=== PATIENT | male | born 1980 | race Caucasian/White ===

== ENCOUNTER → 2016-10-09 | Outpatient (CLI) | payer OTHER | LOC: M OUTALCOH 13:36 | PROVIDERS: ATTEND Psychiatry & Neurology Psychiatry | DX: Z13.9 Encounter for screening, unspecified (principal); F10.20 Alcohol dependence, uncomplicated ==

== ENCOUNTER → 2016-11-15 | Outpatient (CLI) | payer OTHER ==
[2016-11-15 08:21] LABS: MEAN CORPUSCULAR HEMOGLOBIN 32.1 pg (27.0-33.0); MEAN CORPUSCULAR HGB CONC 33.4 g/dl (32.0-36.5); MEAN CORPUSCULAR VOLUME 96.2 fl (80.0-96.0); RED CELL DISTRIBUTION WIDTH 12.5 % (11.5-14.5); WHITE BLOOD COUNT 6.3 K/mm3 (4.0-10.0)
[2016-11-15 08:47] LABS: ALBUMIN 3.8 GM/DL (3.2-5.2); ALBUMIN/GLOBULIN RATIO 1.09 (1.00-1.93); ALKALINE PHOSPHATASE 66 U/L (45-117); ALT/SGPT 151 U/L (12-78); ANION GAP 6 MEQ/L (8-16); AST/SGOT 55 U/L (15-37); BILIRUBIN,TOTAL 0.3 MG/DL (0.2-1.0); BLOOD UREA NITROGEN 21 MG/DL (7-18); CALCIUM LEVEL 9.3 MG/DL (8.5-10.1); CARBON DIOXIDE LEVEL 28 MEQ/L (21-32); CHLORIDE LEVEL 107 MEQ/L (98-107); CREATININE FOR GFR 1.15 MG/DL (0.70-1.30); GLOMERULAR FILTRATION RATE > 60.0 (>60); GLUCOSE, FASTING 94 MG/DL (70-105); POTASSIUM SERUM 4.4 MEQ/L (3.5-5.1); SODIUM LEVEL 141 MEQ/L (136-145); TOTAL PROTEIN 7.3 GM/DL (6.4-8.2)
--- NOTE | 2016-11-15 08:51 | REP ---
Clinical: Cirrhosis. Technique: Real time hanson scale ultrasound examination using curved array transducer. Findings: Liver and visualized pancreas are normal in contour, size, echogenicity without focal hepatic or pancreatic lesions identified. The gallbladder is normal and without gallstones, wall thickening, or pericholecystic fluid. No biliary ductal dilatation is appreciated and the common bile duct measures 4.6 mm diameter. Right kidney is normal in reniform shape without hydronephrosis and measures 11.3 x 5.7 x 5.5 cm. No ascites. Impression: Normal right upper quadrant and liver ultrasound. Signed by Juancarlos Mcmillan MD 11/15/2016 08:43 A
[2016-11-19 00:06] LABS: ALT 149 IU/L (0-55); GGT 79 IU/L (0-65); HAPTOGLOBIN 114 mg/dL (34-200); HEPATITIS C QUANTITATION 239980 IU/mL (.); HEPATITIS C VIRUS GENOTYPE 1b (.); NECROINFLAM SCORE 0.65 (0.00-0.17); NECROINFLAMM GRADE A3-Severe activity (.); TOTAL BILIRUBIN 0.2 mg/dL (0.0-1.2)
== END ==
LOC: M RAD 07:49
PROVIDERS: ATTEND Family Medicine
DX: F10.20 Alcohol dependence, uncomplicated (principal); B18.2 Chronic viral hepatitis C

== ENCOUNTER 2016-12-19 21:38 | Emergency (ER) | payer OTHER ==
[~2016-12-19] VITALS: Ht 188 cm; Wt 90.7 kg
[2016-12-19 21:45] VITALS: BP 139/89
[2016-12-19] MEDS ORDERED: NS 1,000 ML IV ONE (22:00)
[2016-12-19 22:10] LABS: VENOUS BASE EXCESS -2.5 (-2.0-2.0); VENOUS O2 SATURATION 97.8 % (60.0-80.0); VENOUS PARTIAL PRESSURE CO2 29.9 mmHg (38.0-50.0); VENOUS PARTIAL PRESSURE O2 97.1 mmHg (30.0-50.0); VENOUS STANDARD HCO3 22.4 MEQ/L
[2016-12-19 22:15] LABS: BASO # 0.1 K/mm3 (0.0-0.2); BASO % 0.5 % (0.0-1.0); EOS # 0.1 K/mm3 (0.0-0.50); EOS % 0.6 % (0.0-3.0); LARGE UNSTAINED CELL # 0.3 K/mm3 (0.0-0.4); LARGE UNSTAINED CELL % 2.1 % (0.0-4.0); LYMPH # 4.1 K/mm3 (1.5-4.5); LYMPH % 33.9 % (24.0-44.0); MEAN CORPUSCULAR HEMOGLOBIN 33.3 pg (27.0-33.0); MEAN CORPUSCULAR HGB CONC 36.2 g/dl (32.0-36.5); MEAN CORPUSCULAR VOLUME 91.9 fl (80.0-96.0); MONO # 0.8 K/mm3 (0.0-0.8); MONO % 6.8 % (0.0-5.0); NEUTROPHILS # 6.7 K/mm3 (1.8-7.7); PLATELET COUNT, AUTOMATED 327 k/mm3 (150-450); RED CELL DISTRIBUTION WIDTH 12.1 % (11.5-14.5)
[2016-12-19 22:37] LABS: OSMOLALITY SERUM 296 MOSM/KG (275-295)
[2016-12-19 22:58] LABS: ALBUMIN 4.4 GM/DL (3.2-5.2); ALBUMIN/GLOBULIN RATIO 1.16 (1.00-1.93); ALKALINE PHOSPHATASE 86 U/L (45-117); ALT/SGPT 178 U/L (12-78); ANION GAP 15 MEQ/L (8-16); AST/SGOT 75 U/L (15-37); BILIRUBIN,DIRECT < 0.1 MG/DL (0.0-0.2); BILIRUBIN,TOTAL 0.3 MG/DL (0.2-1.0); BLOOD UREA NITROGEN 26 MG/DL (7-18); CALCIUM LEVEL 9.4 MG/DL (8.5-10.1); CARBON DIOXIDE LEVEL 20 MEQ/L (21-32); CHLORIDE LEVEL 102 MEQ/L (98-107); CREATININE FOR GFR 1.48 MG/DL (0.70-1.30); GLOMERULAR FILTRATION RATE 56.6 (>60); GLUCOSE, FASTING 100 MG/DL (70-105); POTASSIUM SERUM 3.8 MEQ/L (3.5-5.1); SODIUM LEVEL 137 MEQ/L (136-145); TOTAL PROTEIN 8.2 GM/DL (6.4-8.2)
--- NOTE | 2016-12-19 23:10 | REPUSA ---
CT of the head Clinical history: Headache. Technique: Multiple axial CT images were obtained through the head without administration of contrast . Findings: The ventricles and sulci are symmetric bilaterally. There is no evidence of acute hemorrhag e or infarct. There is no midline shift, mass effect, or extra-axial fluid collection. The osseous st ructures are unremarkable. The visualized paranasal sinuses and mastoid air cells are clear. Impression: Negative study.
[2016-12-20 00:27] LABS: METHADONE URINE NEGATIVE (NEGATIVE)
--- NOTE | 2016-12-20 05:58 | ECGEPIP ---
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
--- NOTE | 2016-12-20 06:01 | ECGEPIP ---
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 RBBB SIMILAR TO PRIOR ON SAME DATE Electronically Signed On 12-20-2016 6:00:33 EDT by Rick Barney
== END 2016-12-20 04:03 | disposition home or self-care (01) ==
LOC: EDBD 21:38 → M ED 22:38
DX: R56.9 Unspecified convulsions (principal); R94.31 Abnormal electrocardiogram [ECG] [EKG]; T40.4X1A Poisoning by other synthetic narcotics, accidental (unintentional), initial encounter; X58.XXXA Exposure to other specified factors, initial encounter; Y92.89 Other specified places as the place of occurrence of the external cause; Z87.820 Personal history of traumatic brain injury
CPT/HCPCS: 36415; 70450; 80048; 80076; 80306; 81001; 82803; 83605; 83930; 84443; 85025; 87086; 93005; 93041; 99285; G0480

== ENCOUNTER → 2017-04-25 | Outpatient (CLI) | payer MEDICAID | LOC: M OUTALCOH 12:24 | PROVIDERS: ATTEND Psychiatry & Neurology Psychiatry | DX: Z13.9 Encounter for screening, unspecified (principal); F11.20 Opioid dependence, uncomplicated; F10.20 Alcohol dependence, uncomplicated ==

== ENCOUNTER 2017-05-24 14:00 | Outpatient (RCR) | payer MEDICAID | END 2017-05-26 | LOC: M OUTALCOH 14:00 | PROVIDERS: ATTEND Psychiatry & Neurology Psychiatry | DX: F10.20 Alcohol dependence, uncomplicated (principal); F11.20 Opioid dependence, uncomplicated; F17.200 Nicotine dependence, unspecified, uncomplicated ==

== ENCOUNTER → 2017-05-28 | Outpatient (REF) | payer OTHER ==
[2017-05-28 18:45] LABS: ALBUMIN 3.9 GM/DL (3.2-5.2); ALBUMIN/GLOBULIN RATIO 1.18 (1.00-1.93); ALKALINE PHOSPHATASE 75 U/L (45-117); ALT/SGPT 99 U/L (12-78); AST/SGOT 45 U/L (15-37); BILIRUBIN,DIRECT 0.1 MG/DL (0.0-0.2); BILIRUBIN,TOTAL 0.3 MG/DL (0.2-1.0); TOTAL PROTEIN 7.2 GM/DL (6.4-8.2)
[2017-05-30 11:03] LABS: HEPATITIS B SURFACE ANTIBODY NEGATIVE (POSITIVE)
[2017-05-31 10:13] LABS: HEPATITIS C QUANTITATION 158470 IU/mL (.)
== END ==
LOC: M SFHCPLAZ 12:59
PROVIDERS: ATTEND Internal Medicine Infectious Disease
DX: B18.2 Chronic viral hepatitis C (principal)

== ENCOUNTER → 2017-07-20 | Outpatient (REF) | payer MEDICAID | LOC: M LAB REF 17:16 | PROVIDERS: ATTEND Family Medicine Addiction Medicine | DX: F11.21 Opioid dependence, in remission (principal) ==

== ENCOUNTER → 2017-07-26 | Outpatient (RCR) | payer MEDICAID | LOC: M OUTALCOH 07-02 09:00 | PROVIDERS: ATTEND Psychiatry & Neurology Psychiatry | DX: F10.20 Alcohol dependence, uncomplicated (principal); F11.20 Opioid dependence, uncomplicated; F17.200 Nicotine dependence, unspecified, uncomplicated ==

== ENCOUNTER → 2017-08-10 | Outpatient (REF) | payer MEDICAID | LOC: M LAB REF 16:24 | PROVIDERS: ATTEND Family Medicine Addiction Medicine | DX: F11.21 Opioid dependence, in remission (principal) ==

== ENCOUNTER → 2017-08-30 | Outpatient (REF) | payer MEDICAID ==
[2017-09-06 14:19] LABS: AMPHETAMINE SCREEN, URINE Negative ng/mL (Cutoff=1000); BARBITURATES SCREEN, URINE Negative ng/mL (Cutoff=200); BENZODIAZEPINES, URINE SCREEN Negative ng/mL (Cutoff=200); CANNABINOID SCREEN, URINE Negative ng/mL (Cutoff=20); COCAINE SCREEN, URINE Negative ng/mL (Cutoff=300); FENTANYL URINE SCREEN Negative pg/mL (Cutoff=2000); METHADONE, URINE SCREEN Negative ng/mL (Cutoff=300); NALOXONE RESULT Negative (.); OPIATE SCREEN, URINE Negative ng/mL (Cutoff=300); OXYCODONE, SCREEN, URINE Negative ng/mL (Cutoff=100); PCP SCREEN, URINE Negative ng/mL (Cutoff=25); SPECIFIC GRAVITY, URINE 1.019 (.); URINE BUPRENORPHINE Positive (.); URINE BUPRENORPHINE Positive (Cutoff=10); URINE BUPRENORPHINE See Final Results ng/mL (Cutoff=10); URINE BUPRENORPHINE CONFIRM 30 ng/mL (Cutoff=10); URINE NORBUPRENORPHINE Positive (.); URINE NORBUPRENORPHINE CONFIRM 322 ng/mL (Cutoff=10); pH, URINE 6.3 (4.5-8.9)
== END ==
LOC: M LAB REF 11:37
DX: F11.21 Opioid dependence, in remission (principal)
CPT/HCPCS: 80362

== ENCOUNTER → 2017-09-27 | Outpatient (REF) | payer MEDICAID | LOC: M LAB REF 12:27 | DX: F11.21 Opioid dependence, in remission (principal) ==

== ENCOUNTER 2017-10-26 03:07 | Emergency (ER) | payer OTHER, MEDICAID ==
[2017-10-26] MEDS: diphenhydrAMINE INJ 50MG/ML VIAL (J1200) IM (04:45)
[2017-10-26] MEDS: cloNIDine 0.1 MG TAB PO (04:45)
== END 2017-10-26 05:27 | disposition home or self-care (01) ==
LOC: M ED 03:07
DX: F11.23 Opioid dependence with withdrawal (principal); Z79.899 Other long term (current) drug therapy
CPT/HCPCS: J1200

== ENCOUNTER → 2017-10-30 | Outpatient (REF) | payer OTHER | LOC: M LAB REF 11:46 | DX: F11.21 Opioid dependence, in remission (principal) ==

== ENCOUNTER → 2017-10-31 | Outpatient (REF) | payer OTHER | LOC: M LAB REF 20:16 | DX: F11.21 Opioid dependence, in remission (principal) ==

== ENCOUNTER → 2017-11-08 | Outpatient (CLI) | payer MEDICAID | LOC: M OUTALCOH 07:48 | DX: Z13.9 Encounter for screening, unspecified (principal); F10.20 Alcohol dependence, uncomplicated; F11.20 Opioid dependence, uncomplicated ==

== ENCOUNTER → 2017-11-23 | Outpatient (REF) | payer MEDICAID | LOC: M LAB REF 18:50 | DX: F11.21 Opioid dependence, in remission (principal) ==

== ENCOUNTER 2017-11-30 15:47 | Outpatient (RCR) | payer MEDICAID | END 2017-12-24 | LOC: M OUTALCOH 15:47 | DX: F10.20 Alcohol dependence, uncomplicated (principal); F11.20 Opioid dependence, uncomplicated; F17.200 Nicotine dependence, unspecified, uncomplicated ==

== ENCOUNTER → 2017-12-11 | Outpatient (REF) | payer MEDICAID ==
[2017-12-17 14:12] LABS: AMPHETAMINE SCREEN, URINE Negative ng/mL (Cutoff=1000); BARBITURATES SCREEN, URINE Negative ng/mL (Cutoff=200); BENZODIAZEPINES, URINE SCREEN Negative ng/mL (Cutoff=200); CANNABINOID SCREEN, URINE Negative ng/mL (Cutoff=20); COCAINE SCREEN, URINE Negative ng/mL (Cutoff=300); CREATININE, URINE 200.6 mg/dL (20.0-300.0); FENTANYL URINE SCREEN Negative pg/mL (Cutoff=2000); METHADONE, URINE SCREEN Negative ng/mL (Cutoff=300); NALOXONE RESULT Positive (.); OPIATE SCREEN, URINE Negative ng/mL (Cutoff=300); OXYCODONE, SCREEN, URINE Negative ng/mL (Cutoff=100); PCP SCREEN, URINE Negative ng/mL (Cutoff=25); SPECIFIC GRAVITY, URINE 1.021 (.); URINE BUPRENORPHINE Positive (.); URINE BUPRENORPHINE Positive (Cutoff=10); URINE BUPRENORPHINE See Final Results ng/mL (Cutoff=10); URINE BUPRENORPHINE CONFIRM 208 ng/mL (Cutoff=10); URINE NORBUPRENORPHINE Positive (.); URINE NORBUPRENORPHINE CONFIRM 1066 ng/mL (Cutoff=10); pH, URINE 5.6 (4.5-8.9)
== END ==
LOC: M LAB REF 11:25
DX: F11.21 Opioid dependence, in remission (principal)
CPT/HCPCS: 80362

== ENCOUNTER 2017-12-28 14:36 | Outpatient (RCR) | payer MEDICAID | END 2018-01-24 | LOC: M OUTALCOH 14:36 | DX: F10.20 Alcohol dependence, uncomplicated (principal); F11.20 Opioid dependence, uncomplicated; F17.200 Nicotine dependence, unspecified, uncomplicated ==

== ENCOUNTER → 2018-01-09 | Outpatient (REF) | payer MEDICAID ==
[2018-01-16 10:20] LABS: AMPHETAMINE SCREEN, URINE Negative ng/mL (Cutoff=1000); BARBITURATES SCREEN, URINE Negative ng/mL (Cutoff=200); BENZODIAZEPINES, URINE SCREEN Negative ng/mL (Cutoff=200); CANNABINOID SCREEN, URINE Negative ng/mL (Cutoff=20); COCAINE SCREEN, URINE Negative ng/mL (Cutoff=300); CREATININE, URINE 41.9 mg/dL (20.0-300.0); FENTANYL URINE SCREEN Negative pg/mL (Cutoff=2000); METHADONE, URINE SCREEN Negative ng/mL (Cutoff=300); NALOXONE RESULT Negative (.); OPIATE SCREEN, URINE Negative ng/mL (Cutoff=300); OXYCODONE, SCREEN, URINE Negative ng/mL (Cutoff=100); PCP SCREEN, URINE Negative ng/mL (Cutoff=25); SPECIFIC GRAVITY, URINE 1.034 (.); URINE BUPRENORPHINE Negative ng/mL (Cutoff=10); pH, URINE 5.4 (4.5-8.9)
== END ==
LOC: M LAB REF 09:45
DX: F11.21 Opioid dependence, in remission (principal)
CPT/HCPCS: 80362

== ENCOUNTER 2018-01-25 11:58 | Outpatient (RCR) | payer MEDICAID | END 2018-02-23 | LOC: M OUTALCOH 01-28 08:45 | DX: F10.20 Alcohol dependence, uncomplicated (principal); F11.20 Opioid dependence, uncomplicated; F17.200 Nicotine dependence, unspecified, uncomplicated ==

== ENCOUNTER 2018-03-06 18:49 | Emergency (ER) | payer OTHER, MEDICAID ==
[2018-03-06] MEDS: PHENobarbital INJ 65 MG/ML VIAL (J2560) IV (19:56)
[2018-03-06 19:57] LABS: HEMATOCRIT 44.3 % (42.0-52.0); HEMOGLOBIN 15.5 g/dl (13.5-17.5); MEAN CORPUSCULAR HEMOGLOBIN 31.6 pg (27.0-33.0); MEAN CORPUSCULAR VOLUME 90.4 fl (80.0-96.0); PLATELET COUNT, AUTOMATED 317 10^3/uL (150-450); RED CELL DISTRIBUTION WIDTH 12.2 % (11.5-14.5); WHITE BLOOD COUNT 9.6 10^3/uL (4.0-10.0)
[2018-03-06] MEDS: MULTIVITAMIN -ADULT INJECTION 10 ML, THIAMINE INJection 100 MG, FOLIC ACID 1 MG in NS 1... IV (20:13)
[2018-03-06 20:18] LABS: LIPASE 111 U/L (73-393)
[2018-03-06 20:33] LABS: ALBUMIN 3.9 GM/DL (3.2-5.2); ALKALINE PHOSPHATASE 85 U/L (45-117); ALT/SGPT 17 U/L (12-78); ANION GAP 8 MEQ/L (8-16); AST/SGOT 9 U/L (7-37); BILIRUBIN,DIRECT 0.2 MG/DL (0.0-0.2); BILIRUBIN,TOTAL 0.6 MG/DL (0.2-1.0); BLOOD UREA NITROGEN 15 MG/DL (7-18); CALCIUM LEVEL 9.5 MG/DL (8.5-10.1); CARBON DIOXIDE LEVEL 26 MEQ/L (21-32); CHLORIDE LEVEL 103 MEQ/L (98-107); CPK CREATINE PHOSPHOKINASE 65 U/L (39-308); CREATININE FOR GFR 1.02 MG/DL (0.70-1.30); ETHYL ALCOHOL (ETHANOL) 0.005 % (0.000-0.010); GLOMERULAR FILTRATION RATE > 60.0 (>60); GLUCOSE, FASTING 105 MG/DL (70-100); POTASSIUM SERUM 4.4 MEQ/L (3.5-5.1); SALICYLATE LEVEL 3.2 MG/DL (5.0-30.0); SODIUM LEVEL 137 MEQ/L (136-145); THYROID STIMULATING HORMONE 0.985 uIU/ML (0.358-3.740); TOTAL PROTEIN 7.8 GM/DL (6.4-8.2)
[2018-03-06 20:40] LABS: ACETAMINOPHEN LEVEL < 2.0 UG/ML (10.0-30.0)
[2018-03-06 22:39] LABS: AMPHETAMINES LEVEL URINE NEGATIVE (NEGATIVE); BARBITURATES URINE NEGATIVE (NEGATIVE); BENZODIAZEPINES URINE NEGATIVE (NEGATIVE); CANNABINOIDS URINE NEGATIVE (NEGATIVE); COCAINE METABOLITE URINE POSITIVE (NEGATIVE); METHADONE URINE NEGATIVE (NEGATIVE); OPIATES URINE POSITIVE (NEGATIVE); PHENCYCLIDINE URINE NEGATIVE (NEGATIVE)
== END 2018-03-06 22:54 | disposition home or self-care (01) ==
LOC: M ED 18:49
DX: F10.20 Alcohol dependence, uncomplicated (principal); F14.10 Cocaine abuse, uncomplicated; F17.210 Nicotine dependence, cigarettes, uncomplicated; Z79.891 Long term (current) use of opiate analgesic
CPT/HCPCS: J2560

== ENCOUNTER → 2018-04-17 | Outpatient (CLI) | payer MEDICAID, OTHER ==
[2018-04-17 10:45] LABS: BASO % 0.5 % (0.0-1.0); EOS # 0.2 10^3/uL (0.0-0.50); EOS % 2.8 % (0.0-3.0); HEMATOCRIT 42.8 % (42.0-52.0); HEMOGLOBIN 14.5 g/dl (13.5-17.5); IMMATURE GRANULOCYTE % 0.2 % (0-3.0); LYMPH # 2.7 10^3/uL (1.5-4.5); LYMPH % 47.8 % (24.0-44.0); MEAN CORPUSCULAR HEMOGLOBIN 30.5 pg (27.0-33.0); MEAN CORPUSCULAR HGB CONC 33.9 g/dl (32.0-36.5); MEAN CORPUSCULAR VOLUME 90.1 fl (80.0-96.0); MONO # 0.5 10^3/uL (0.0-0.8); MONO % 8.9 % (0.0-5.0); NEUTROPHILS # 2.2 10^3/uL (1.8-7.7); NEUTROPHILS % 39.8 % (36.0-66.0); PLATELET COUNT, AUTOMATED 296 10^3/uL (150-450); RED BLOOD COUNT 4.75 10^6/uL (4.30-6.10); RED CELL DISTRIBUTION WIDTH 11.9 % (11.5-14.5); WHITE BLOOD COUNT 5.6 10^3/uL (4.0-10.0)
[2018-04-17 11:07] LABS: ALBUMIN 3.7 GM/DL (3.2-5.2); ALKALINE PHOSPHATASE 73 U/L (45-117); ALT/SGPT 36 U/L (12-78); ANION GAP 7 MEQ/L (8-16); AST/SGOT 19 U/L (7-37); BILIRUBIN,TOTAL 0.3 MG/DL (0.2-1.0); BLOOD UREA NITROGEN 25 MG/DL (7-18); CALCIUM LEVEL 9.2 MG/DL (8.5-10.1); CARBON DIOXIDE LEVEL 29 MEQ/L (21-32); CHLORIDE LEVEL 106 MEQ/L (98-107); CREATININE FOR GFR 0.97 MG/DL (0.70-1.30); GLOMERULAR FILTRATION RATE > 60.0 (>60); GLUCOSE, FASTING 94 MG/DL (70-100); POTASSIUM SERUM 4.5 MEQ/L (3.5-5.1); SODIUM LEVEL 142 MEQ/L (136-145); TOTAL PROTEIN 7.4 GM/DL (6.4-8.2)
[2018-04-17 11:21] LABS: HEPATITIS B SURFACE ANTIBODY NEGATIVE (POSITIVE)
[2018-04-17 11:30] LABS: HEPATITIS B SURFACE ANTIGEN NEGATIVE (NEGATIVE)
[2018-04-22 00:06] LABS: ALPHA 2-MACROGLOBULIN 126 mg/dL (110-276); ALT 30 IU/L (0-55); APOLIPOPROTEIN A-1 165 mg/dL (101-178); FIBROSIS SCORE 0.04 (0.00-0.21); GGT 27 IU/L (0-65); HAPTOGLOBIN 106 mg/dL (34-200); HEPATITIS A IgG TOTAL Positive (Negative); HEPATITIS C QUANTITATION HCV Not Detected IU/mL (.); NECROINFLAMM GRADE A0-No activity (.); TOTAL BILIRUBIN 0.2 mg/dL (0.0-1.2)
== END ==
LOC: M LAB 09:34
DX: B18.2 Chronic viral hepatitis C (principal); B16.9 Acute hepatitis B without delta-agent and without hepatic coma; B15.9 Hepatitis A without hepatic coma; R53.82 Chronic fatigue, unspecified
CPT/HCPCS: 80053

== ENCOUNTER → 2020-04-19 | Outpatient (REF) | payer OTHER, MEDICAID ==
[~2020-04-19] MED LIST: CLONI1TA PO; HYDR50TA70 PO; SUBO12MI SL; ZOLO100T PO
[2020-04-19 17:55] LABS: BASO # 0.1 10^3/uL (0.0-0.2); BASO % 1.3 % (0.0-1.0); EOS # 0.1 10^3/uL (0.0-0.5); HEMATOCRIT 44.6 % (42.0-52.0); HEMOGLOBIN 15.4 g/dl (13.5-17.5); LYMPH # 3.2 10^3/uL (1.5-5.0); LYMPH % 58.4 % (24.0-44.0); MEAN CORPUSCULAR HGB CONC 34.5 g/dl (32.0-36.5); MEAN CORPUSCULAR VOLUME 104.2 fl (80.0-96.0); MONO # 0.7 10^3/uL (0.0-0.8); MONO % 12.6 % (0.0-5.0); NEUTROPHILS # 1.4 10^3/uL (1.5-8.5); NEUTROPHILS % 25.5 % (36.0-66.0); PLATELET COUNT, AUTOMATED 240 10^3/uL (150-450); RED BLOOD COUNT 4.28 10^6/uL (4.30-6.10); WHITE BLOOD COUNT 5.5 10^3/uL (4.0-10.0)
[2020-04-19 17:56] LABS: ALBUMIN 3.7 GM/DL (3.2-5.2); ALT/SGPT 112 U/L (12-78); BILIRUBIN,TOTAL 0.2 MG/DL (0.2-1.0); BLOOD UREA NITROGEN 10 MG/DL (7-18); CALCIUM LEVEL 9.7 MG/DL (8.5-10.1); CARBON DIOXIDE LEVEL 29 MEQ/L (21-32); CHLORIDE LEVEL 106 MEQ/L (98-107); CREATININE FOR GFR 1.09 MG/DL (0.70-1.30); GLOMERULAR FILTRATION RATE > 60.0 (>60); GLUCOSE, FASTING 113 MG/DL (70-100); POTASSIUM SERUM 4.2 MEQ/L (3.5-5.1); SODIUM LEVEL 142 MEQ/L (136-145); TOTAL PROTEIN 7.8 GM/DL (6.4-8.2)
[2020-04-20 14:25] LABS: HEPATITIS C VIRUS ABY INDEX > 11.0 INDEX (<0.8)
== END ==
LOC: M LAB REF 17:14
PROVIDERS: ATTEND Family Medicine Addiction Medicine
DX: B18.2 Chronic viral hepatitis C (principal)

== ENCOUNTER → 2020-09-28 | Outpatient (REF) | payer OTHER ==
[2020-09-28 17:00] LABS: BASO # 0.1 10^3/uL (0.0-0.2); BASO % 1.1 % (0.0-1.0); EOS # 0.1 10^3/uL (0.0-0.5); EOS % 2.6 % (0.0-3.0); HEMATOCRIT 44.8 % (42.0-52.0); HEMOGLOBIN 15.3 g/dl (13.5-17.5); LYMPH # 1.8 10^3/uL (1.5-5.0); LYMPH % 33.1 % (24.0-44.0); MEAN CORPUSCULAR HEMOGLOBIN 34.8 pg (27.0-33.0); MEAN CORPUSCULAR HGB CONC 34.2 g/dl (32.0-36.5); MEAN CORPUSCULAR VOLUME 101.8 fl (80.0-96.0); MONO # 0.7 10^3/uL (0.0-0.8); MONO % 12.4 % (0.0-5.0); NEUTROPHILS # 2.8 10^3/uL (1.5-8.5); NEUTROPHILS % 50.4 % (36.0-66.0); PLATELET COUNT, AUTOMATED 238 10^3/uL (150-450); WHITE BLOOD COUNT 5.5 10^3/uL (4.0-10.0)
[2020-09-28 17:34] LABS: ALT/SGPT 113 U/L (12-78); BILIRUBIN,TOTAL 0.6 MG/DL (0.2-1.0); BLOOD UREA NITROGEN 10 MG/DL (7-18); CALCIUM LEVEL 9.8 MG/DL (8.5-10.1); CARBON DIOXIDE LEVEL 27 MEQ/L (21-32); CHLORIDE LEVEL 103 MEQ/L (98-107); CHOLESTEROL LEVEL 249 MG/DL (<200); CREATININE FOR GFR 1.11 MG/DL (0.70-1.30); GLOMERULAR FILTRATION RATE > 60.0 (>60); GLUCOSE, FASTING 103 MG/DL (70-100); HDL CHOLESTEROL 131 MG/DL (>40); LDL CHOLESTEROL 101 MG/DL (<100); NON-HDL-C 118 MG/DL; POTASSIUM SERUM 4.7 MEQ/L (3.5-5.1); SODIUM LEVEL 139 MEQ/L (136-145); TOTAL PROTEIN 7.9 GM/DL (6.4-8.2); TRIGLYCERIDES LEVEL 86 MG/DL (<150)
== END ==
LOC: M LAB REF 16:37
PROVIDERS: ATTEND Family Medicine Addiction Medicine
DX: B18.2 Chronic viral hepatitis C (principal); Z68.30 Body mass index [BMI] 30.0-30.9, adult

== ENCOUNTER → 2021-11-21 | Outpatient (REF) | payer OTHER | LOC: M SMT 13:01 | PROVIDERS: ATTEND Urology | DX: N48.9 Disorder of penis, unspecified (principal) ==

== ENCOUNTER 2022-06-12 22:16 | Emergency (ER) | payer OTHER ==
[~2022-06-12] VITALS: Ht 188 cm; Wt 109.1 kg
[2022-06-12 23:13] LABS: HEMATOCRIT 42.3 % (42.0-52.0); HEMOGLOBIN 14.8 g/dl (13.5-17.5); MEAN CORPUSCULAR HEMOGLOBIN 36.3 pg (27.0-33.0); MEAN CORPUSCULAR VOLUME 103.7 fl (80.0-96.0); PLATELET COUNT, AUTOMATED 205 10^3/uL (150-450); RED BLOOD COUNT 4.08 10^6/uL (4.30-6.10); WHITE BLOOD COUNT 6.6 10^3/uL (4.0-10.0)
[2022-06-12 23:42] LABS: RSV AMPLIFICATION NEGATIVE (NEGATIVE)
[2022-06-13 00:06] LABS: HCG, SERUM QUALITATIVE NEGATIVE
[2022-06-13 00:11] LABS: AMPHETAMINES LEVEL URINE NEGATIVE (NEGATIVE); BARBITURATES URINE NEGATIVE (NEGATIVE); BENZODIAZEPINES URINE NEGATIVE (NEGATIVE); CANNABINOIDS URINE NEGATIVE (NEGATIVE); COCAINE METABOLITE URINE NEGATIVE (NEGATIVE); METHADONE URINE NEGATIVE (NEGATIVE); OPIATES URINE NEGATIVE (NEGATIVE); PHENCYCLIDINE URINE NEGATIVE (NEGATIVE)
[2022-06-13 00:44] LABS: ACETAMINOPHEN LEVEL < 2.0 UG/ML (10.0-30.0); ALBUMIN 3.6 GM/DL (3.2-5.2); ALT/SGPT 87 U/L (12-78); BILIRUBIN,DIRECT 0.2 MG/DL (0.0-0.2); BILIRUBIN,TOTAL 0.3 MG/DL (0.2-1.0); BLOOD UREA NITROGEN 7 MG/DL (7-18); CALCIUM LEVEL 9.1 MG/DL (8.5-10.1); CARBON DIOXIDE LEVEL 23 MEQ/L (21-32); CHLORIDE LEVEL 105 MEQ/L (98-107); CREATININE FOR GFR 0.97 MG/DL (0.70-1.30); ETHYL ALCOHOL (ETHANOL) 0.387 % (0.000-0.010); GLOMERULAR FILTRATION RATE > 60.0 (>60); GLUCOSE, FASTING 107 MG/DL (70-100); POTASSIUM SERUM 3.2 MEQ/L (3.5-5.1); SALICYLATE LEVEL 2.8 MG/DL (5.0-30.0); SODIUM LEVEL 139 MEQ/L (136-145)
[2022-06-13] MEDS ORDERED: POTASSIUM CHLORIDE 10MEQ SR TABLET PO ONE (07:25)
[2022-06-13] MEDS ORDERED: MIRT-11 PO (15:03)
[2022-06-13] MEDS ORDERED: HOME MED LIST COMPLETE! XX SCH (15:05)
[2022-06-13 18:30] VITALS: BP 130/74
== END 2022-06-13 18:36 | disposition home or self-care (01) ==
LOC: M ED 22:16
DX: F10.129 Alcohol abuse with intoxication, unspecified (principal); B19.20 Unspecified viral hepatitis C without hepatic coma; F11.10 Opioid abuse, uncomplicated; Z79.899 Other long term (current) drug therapy

== ENCOUNTER → 2022-07-24 | Outpatient (CLI) | payer OTHER ==
[~2022-07-24] MED LIST changes: +MIRT-11 PO
== END ==
LOC: M OUTALCOH 09:46
PROVIDERS: ATTEND Psychiatry & Neurology Psychiatry
DX: Z13.30 Encounter for screening examination for mental health and behavioral disorders, unspecified (principal)

== ENCOUNTER 2022-08-18 08:40 | Outpatient (RCR) | payer OTHER | END 2022-08-26 | LOC: M OUTALCOH 08:40 | PROVIDERS: ATTEND Psychiatry & Neurology Psychiatry | DX: F10.20 Alcohol dependence, uncomplicated (principal); Z72.0 Tobacco use ==

== ENCOUNTER 2025-04-03 22:36 | Inpatient (IN) | payer OTHER ==
[~2025-04-03] VITALS: Ht 182.9 cm; Wt 113.6 kg
[2025-04-03 23:16] LABS: PLATELET COUNT, AUTOMATED 174 10^3/uL (150-450)
[2025-04-03 23:50] LABS: AMPHETAMINES LEVEL URINE NEGATIVE (NEGATIVE); BARBITURATES URINE NEGATIVE (NEGATIVE); BENZODIAZEPINES URINE NEGATIVE (NEGATIVE); CANNABINOIDS URINE NEGATIVE (NEGATIVE); COCAINE METABOLITE URINE NEGATIVE (NEGATIVE); METHADONE URINE NEGATIVE (NEGATIVE); OPIATES URINE NEGATIVE (NEGATIVE); PHENCYCLIDINE URINE NEGATIVE (NEGATIVE)
[2025-04-03 23:52] LABS: SALICYLATE LEVEL < 3.0 MG/DL (<30)
[2025-04-03 23:54] LABS: ALT/SGPT 78 U/L (7.0-40); AST/SGOT 108 U/L (<34); CALCIUM LEVEL 9.2 MG/DL (8.5-10.1); CARBON DIOXIDE LEVEL 24 MMOL/L (20-31); CHLORIDE LEVEL 104 MMOL/L (98-107); CREATININE FOR GFR 0.91 MG/DL (0.70-1.30); GLOMERULAR FILTRATION RATE > 90.0 (>60); POTASSIUM SERUM 3.7 MMOL/L (3.5-5.1); SODIUM LEVEL 147 MMOL/L (136-145)
[2025-04-04 00:09] LABS: ETHYL ALCOHOL (ETHANOL) 0.350 % (0.000-0.010)
[2025-04-04] MEDS: ONDANSETRON 4MG ORAL DISINTEGRATING TAB PO ONE ×2 (08:52→10:18)
[2025-04-04] MEDS: FOLIC ACID 1 MG TAB PO SCH (10:08)
[2025-04-04] MEDS: THIAMINE 100 MG TAB PO SCH ×2 (10:09→21:55)
[2025-04-04] MEDS: MULTIVITAMINS/MINERALS THERAP 1 TAB PO SCH (10:09)
[2025-04-04] MEDS ORDERED: HOME MED LIST COMPLETE! XX SCH (11:15)
[2025-04-04] MEDS ORDERED: MOM 30 ML SUSPENSION UDC PO PRN (12:30)
[2025-04-04] MEDS ORDERED: ACETAMINOPHEN 325 MG TAB PO PRN (12:30)
[2025-04-04] MEDS ORDERED: IBUPROFEN 400 MG TAB PO PRN (12:30)
[2025-04-04] MEDS: NICOTINE 14 MG/24 HR TRANSDERMAL TD SCH (13:11)
[2025-04-04] MEDS: chlordiazePOXIDE 25 MG CAP PO SCH (15:04)
[2025-04-04 16:21] VITALS: BP 132/76
[2025-04-04 16:23] VITALS: BP 132/76; TEMP 98.6; O2SAT 95
[2025-04-04] MEDS: LORazepam 1 MG TAB PO PRN (21:55)
[2025-04-04] MEDS: traZODone 50 MG TAB PO PRN (21:55)
[2025-04-04] MEDS: OLANZapine 5 MG TAB PO PRN (21:55)
[2025-04-04 21:59] VITALS: BP 160/94
[2025-04-05 06:26] VITALS: BP 125/74; TEMP 97.8; O2SAT 97
[2025-04-05] MEDS: MULTIVITAMINS/MINERALS THERAP 1 TAB PO SCH (08:30)
[2025-04-05] MEDS: FOLIC ACID 1 MG TAB PO SCH (08:30)
[2025-04-05 14:30] VITALS: BP 125/79
[2025-04-05 15:19] VITALS: BP 125/79; TEMP 98.2; O2SAT 95
[2025-04-05] MEDS: HALOPERIDOL 5 MG TAB PO PRN (18:09)
[2025-04-06 06:25] VITALS: BP 120/74; TEMP 97.4; O2SAT 99
[2025-04-06 07:30] VITALS: BP 120/74
[2025-04-06] MEDS: SERTRALINE HCL 50 MG TAB PO SCH (09:13)
[2025-04-06] MEDS: NALTREXONE 50 MG TAB PO SCH (10:22)
[2025-04-06 15:29] VITALS: BP 139/91; TEMP 97; O2SAT 99
[2025-04-06 15:30] VITALS: BP 139/91
[2025-04-06] MEDS: NYSTATIN OINTMENT 15 GM TOP SCH (20:26)
[2025-04-06] MEDS: NICOTINE POLACRILEX 2 MG GUM PO PRN (21:42)
[2025-04-06 22:00] VITALS: BP 128/84
[2025-04-07 06:19] VITALS: BP 117/73; TEMP 97; O2SAT 98
[2025-04-07 14:19] VITALS: BP 122/75
[2025-04-07] MEDS: MAALOX 30 ML SUSP *UDC PO PRN (14:51)
[2025-04-07 17:17] VITALS: BP 122/75; TEMP 98.1; O2SAT 100
[2025-04-07] MEDS: NICOTINE 14 MG/24 HR TRANSDERMAL TD ONE (17:35)
[2025-04-07] MEDS: chlordiazePOXIDE 25 MG CAP PO SCH (20:28)
[2025-04-08 06:12] VITALS: BP 122/58; TEMP 97.1; O2SAT 98
[2025-04-08] MEDS: NICOTINE 14 MG/24 HR TRANSDERMAL TD SCH (08:22)
[2025-04-08] MEDS: SERTRALINE HCL 50 MG TAB PO ONE (10:24)
[2025-04-08 15:12] VITALS: BP 130/76; TEMP 97.4; O2SAT 100
[2025-04-09 06:35] VITALS: BP 113/62; TEMP 97.6; O2SAT 98
[2025-04-09] MEDS: SERTRALINE 100 MG TAB PO SCH (08:11)
[2025-04-09] MEDS: chlordiazePOXIDE 25 MG CAP PO SCH (08:11)
[2025-04-09 14:55] VITALS: BP 114/68; TEMP 97.4; O2SAT 100
[2025-04-10] MEDS ORDERED: NALT50TA4 PO (08:47)
[2025-04-10] MEDS ORDERED: ZOLO100T PO (08:47)
[2025-04-10] MEDS ORDERED: OLAN1TAB16 PO (08:47)
[2025-04-10] MEDS ORDERED: TRAZ-252 PO (08:47)
== END 2025-04-10 11:09 | disposition home or self-care (01) | DRG 751 ==
LOC: M ED 22:36 → M ED INP 04-04 12:30 → M PSY 04-04 16:20
PROVIDERS: ADMIT Internal Medicine; ATTEND Psychiatry & Neurology Psychiatry
DX: F33.1 Major depressive disorder, recurrent, moderate (principal); F10.229 Alcohol dependence with intoxication, unspecified; F41.1 Generalized anxiety disorder; F17.290 Nicotine dependence, other tobacco product, uncomplicated; Z91.51 Personal history of suicidal behavior; Z91.148 Patient's other noncompliance with medication regimen for other reason; R74.01 Elevation of levels of liver transaminase levels; Z56.0 Unemployment, unspecified; Z63.5 Disruption of family by separation and divorce; Z87.820 Personal history of traumatic brain injury; Z59.00 Homelessness unspecified

== ENCOUNTER 2025-06-03 21:10 | Inpatient (IN) | payer MEDICAID, OTHER ==
[~2025-06-03] VITALS: Ht 188 cm; Wt 116.3 kg
[~2025-06-03 21:10] MED LIST changes: +NALT50TA4 PO; +OLAN1TAB16 PO; +TRAZ-252 PO
[2025-06-03 22:05] LABS: PLATELET COUNT, AUTOMATED 283 10^3/uL (150-450)
[2025-06-03 22:21] LABS: SALICYLATE LEVEL < 3.0 MG/DL (<30)
[2025-06-03 22:22] LABS: ALT/SGPT 44 U/L (7.0-40); AST/SGOT 54 U/L (<34); CALCIUM LEVEL 9.0 MG/DL (8.5-10.1); CARBON DIOXIDE LEVEL 22 MMOL/L (20-31); CHLORIDE LEVEL 106 MMOL/L (98-107); CREATININE FOR GFR 0.96 MG/DL (0.70-1.30); GLOMERULAR FILTRATION RATE > 90.0 (>60); POTASSIUM SERUM 3.8 MMOL/L (3.5-5.1); SODIUM LEVEL 144 MMOL/L (136-145)
[2025-06-03 22:52] LABS: ETHYL ALCOHOL (ETHANOL) 0.418 % (0.000-0.010)
[2025-06-04 00:06] LABS: AMPHETAMINES LEVEL URINE NEGATIVE (NEGATIVE); BARBITURATES URINE NEGATIVE (NEGATIVE); BENZODIAZEPINES URINE NEGATIVE (NEGATIVE); CANNABINOIDS URINE NEGATIVE (NEGATIVE); COCAINE METABOLITE URINE NEGATIVE (NEGATIVE); METHADONE URINE NEGATIVE (NEGATIVE); OPIATES URINE NEGATIVE (NEGATIVE); PHENCYCLIDINE URINE NEGATIVE (NEGATIVE)
[2025-06-04] MEDS: THIAMINE 100 MG TAB PO SCH ×2 (09:51→20:28)
[2025-06-04] MEDS: MULTIVITAMINS/MINERALS THERAP 1 TAB PO SCH (09:52)
[2025-06-04] MEDS: FOLIC ACID 1 MG TAB PO SCH (09:52)
[2025-06-04] MEDS ORDERED: TRAZ-186 PO (10:13)
[2025-06-04] MEDS ORDERED: OLAN1TAB16 PO (10:13)
[2025-06-04] MEDS ORDERED: NALT50TA4 PO (10:13)
[2025-06-04] MEDS ORDERED: HOME MED LIST COMPLETE! XX SCH (10:15)
[2025-06-04] MEDS: ONDANSETRON 4MG ORAL DISINTEGRATING TAB PO ONE ×2 (10:40→15:04)
[2025-06-04] MEDS: SERTRALINE 100 MG TAB PO SCH (10:40)
[2025-06-04] MEDS ORDERED: OLANZapine 5 MG TAB PO PRN (12:30)
[2025-06-04] MEDS ORDERED: IBUPROFEN 400 MG TAB PO PRN (13:05)
[2025-06-04] MEDS ORDERED: ACETAMINOPHEN 325 MG TAB PO PRN (13:05)
[2025-06-04] MEDS ORDERED: MOM 30 ML SUSPENSION UDC PO PRN (13:05)
[2025-06-04] MEDS ORDERED: MAALOX 30 ML SUSP *UDC PO PRN (13:05)
[2025-06-04 18:28] VITALS: BP 132/70
[2025-06-04] MEDS: NALTREXONE 50 MG TAB PO SCH (18:47)
[2025-06-04 20:23] VITALS: BP 131/64
[2025-06-04 21:51] VITALS: BP 135/80
[2025-06-04] MEDS: chlordiazePOXIDE 25 MG CAP PO SCH (22:29)
[2025-06-04 23:18] VITALS: BP 126/73; TEMP 97.1; O2SAT 97
[2025-06-04 23:22] VITALS: BP 126/73
[2025-06-05 04:46] VITALS: BP 126/63; TEMP 98.7; O2SAT 96
[2025-06-05 05:00] VITALS: BP 124/63
[2025-06-05 06:26] VITALS: BP 127/70; TEMP 97.3; O2SAT 96
[2025-06-05 09:00] VITALS: BP 113/68
[2025-06-05] MEDS: FOLIC ACID 1 MG TAB PO SCH (09:46)
[2025-06-05] MEDS: MULTIVITAMINS/MINERALS THERAP 1 TAB PO SCH (09:46)
[2025-06-05] MEDS: SERTRALINE 100 MG TAB PO SCH (09:46)
[2025-06-05] MEDS: OLANZapine 5 MG TAB PO PRN (15:45)
[2025-06-05 18:00] VITALS: BP 123/63
[2025-06-05] MEDS: traZODone 50 MG TAB PO PRN (20:32)
[2025-06-05] MEDS: chlordiazePOXIDE 25 MG CAP PO SCH (21:09)
[2025-06-05 22:00] VITALS: BP 110/55; TEMP 97.5; O2SAT 95
[2025-06-06 02:00] VITALS: BP 120/70; TEMP 96.6; O2SAT 98
[2025-06-06 06:22] VITALS: BP 132/61; TEMP 97.1; O2SAT 98
[2025-06-06 06:23] VITALS: BP 132/61
[2025-06-06 06:32] VITALS: BP 132/61; TEMP 97.1; O2SAT 98
[2025-06-06] MEDS: LORazepam 1 MG TAB PO ONE (10:27)
[2025-06-06 14:23] VITALS: BP 105/57; TEMP 97.5; O2SAT 97
[2025-06-06] MEDS: chlordiazePOXIDE 25 MG CAP PO SCH (20:15)
[2025-06-06 22:00] VITALS: BP 115/57; TEMP 97.5; O2SAT 98
[2025-06-07] VITALS (7 sets, daily range): BP systolic 101–128; BP diastolic 54–70; TEMP 96.5–98; O2SAT 95–98
[2025-06-07] MEDS: LORazepam 1 MG TAB PO PRN (15:43)
[2025-06-07] MEDS: chlordiazePOXIDE 25 MG CAP PO SCH (21:05)
[2025-06-08 06:35] VITALS: BP 100/52; TEMP 96.2; O2SAT 97
[2025-06-08 08:22] VITALS: BP 99/58; TEMP 97.3; O2SAT 97
[2025-06-08 12:22] VITALS: BP 134/92; TEMP 97.7; O2SAT 98
[2025-06-08 15:22] VITALS: BP 111/74; TEMP 97.9; O2SAT 96
[2025-06-08 16:22] VITALS: BP 111/74
[2025-06-08 22:11] VITALS: BP 122/68
[2025-06-09 06:26] VITALS: BP 117/63; TEMP 97.5; O2SAT 98
[2025-06-09 06:27] VITALS: BP 117/63
[2025-06-09] MEDS ORDERED: ZOLO100T PO (07:58)
[2025-06-09] MEDS ORDERED: TRAZ-186 PO (07:58)
[2025-06-09] MEDS ORDERED: NALT50TA4 PO (07:58)
[2025-06-09] MEDS ORDERED: OLAN1TAB16 PO (07:58)
== END 2025-06-09 12:30 | disposition home or self-care (01) | DRG 751 ==
LOC: M ED 21:10 → M ED INP 06-04 13:03 → M PSY 06-04 16:20
PROVIDERS: ADMIT General Practice; ATTEND Psychiatry & Neurology Psychiatry
DX: F33.1 Major depressive disorder, recurrent, moderate (principal); R45.851 Suicidal ideations; K70.30 Alcoholic cirrhosis of liver without ascites; F10.229 Alcohol dependence with intoxication, unspecified; F41.1 Generalized anxiety disorder; F41.0 Panic disorder [episodic paroxysmal anxiety]; F10.239 Alcohol dependence with withdrawal, unspecified; Z56.0 Unemployment, unspecified; Z87.820 Personal history of traumatic brain injury; Z87.891 Personal history of nicotine dependence; Z79.899 Other long term (current) drug therapy